=== PATIENT | female | born 1980 | race Caucasian/White ===

== ENCOUNTER 2019-03-25 05:50 | Emergency (ER) | payer OTHER ==
[~2019-03-25] VITALS: Ht 175.3 cm; Wt 63.1 kg
--- NOTE | 2019-03-25 06:08 | NUR ---
PT HAD TEMPERATURE ON TUESDAY AND THEN STARTED FEELING BETTER. STARTED HAVING HEADACHE YESTERDAY AND HAS CONTINUED TO PERSIST. HAVING STIFF NECK AND IS WORRIED SHE MIGHT HABE MENINGITIS.
[2019-03-25] MEDS ORDERED: DIPHENHYDRAMINE 50 MG/ML, 1ML IVPush ONE (06:30)
[2019-03-25] MEDS ORDERED: SODIUM CHLORIDE FLUSH 10ML SYR IVF ONE (06:30)
[2019-03-25] MEDS ORDERED: PROCHLORPERAZINE 5 MG/ML, 2ML IVPush ONE (06:30)
[2019-03-25] MEDS ORDERED: DIPHENHYDRAMINE 50 MG/ML, 1ML ONE (06:51)
[2019-03-25] MEDS ORDERED: PROCHLORPERAZINE 5 MG/ML, 2ML ONE (06:51)
[2019-03-25 07:02] LABS: BASOPHILS # (AUTO) 0.01 x10^3/uL (0-0.1); BASOPHILS % (AUTO) 0 % (0-1); EOSINOPHILS # (AUTO) 0.04 x10^3/uL (0-0.4); EOSINOPHILS % (AUTO) 1 % (1-7); LYMPHOCYTES # (AUTO) 1.65 x10^3/uL (1-3.4); LYMPHOCYTES % (AUTO) 36 % (22-44); MD NO; MEAN CORPUSCULAR HEMOGLOBIN 31.1 pg (27.0-34.8); MEAN CORPUSCULAR VOLUME 97.3 fL (80-100); MEAN PLATELET VOLUME 7.6 fL (7.4-10.4); MONOCYTES # (AUTO) 0.54 x10^3/uL (0.2-0.8); MONOCYTES % (AUTO) 12 % (2-9); NEUTROPHILS # (AUTO) 2.29 x10^3/uL (1.8-6.8); NEUTROPHILS % (AUTO) 51 % (42-75); PLATELET COUNT 254 x10^3/uL (130-400); RED CELL DISTRIBUTION WIDTH 12.9 % (9.6-15.2)
--- NOTE | 2019-03-25 07:08 | NUR ---
PIV STARTED 20G RIGHT FOREARM. PT MEDICATED PER EMAR. UPDATED ON POC.
--- NOTE | 2019-03-25 07:12 | NUR ---
Recieved bedside report from CARLOS Vazquez. PIOTR. No other needs expressed a this time. Pt aware of need of urine sample.
[2019-03-25 07:14] LABS: ALANINE AMINOTRANSFERASE 19 U/L (12-78); ALBUMIN 3.3 g/dL (3.4-5.0); ANION GAP 5 mmol/L (5-15); CALCIUM 8.3 mg/dL (8.5-10.1); CHLORIDE 112 mmol/L (98-107); CREATININE 0.84 mg/dL (0.55-1.02)
[2019-03-25 07:19] LABS: ALKALINE PHOSPHATASE 37 U/L (45-117); BILIRUBIN,TOTAL 0.5 mg/dL (0.2-1.0); TOTAL PROTEIN 6.6 g/dL (6.4-8.2)
[2019-03-25] MEDS ORDERED: LIDOCAINE-MPF 1%, 5ML ONE (08:08)
--- NOTE | 2019-03-25 08:11 | NUR ---
LP supplies brought to room. Provided pt with warm blanket and pillow per request. NADN. Both bedrails up for safety measures. call light within reach. Pt connected to SPO2% monitor. No other needs expressed at this time. ED PA aware that LP supplies are in room.
--- NOTE | 2019-03-25 09:40 | NUR ---
Pt requesting to use restroom. Pt ambulates with steady gait and balance to restroom with EDRN SBA. NADN, no obvious defecits observed. Pt provided urine sample. UA sent to lab. Pt ambulates back to ED room with steady gait and balance EDRN SBA. Pt connected to SPO2% monitor. Bed in supine flat position. Pt resting supine. Bedrail up for safety measure. Call light within reach. Pt has 7/10 headache. Pt requesting water. Water provided by ED PA. Pt apprecaitive. No other needs expressed at this time.
[2019-03-25] MEDS ORDERED: HYDROmorphone 2 MG/ML, 1ML ONE (09:42)
[2019-03-25 09:48] LABS: MICROSCOPIC NOT IND
[2019-03-25 09:48] LABS: GLUCOSE, CSF 53 mg/dL (40-80); TOTAL PROTEIN,CSF 68 mg/dL (15-45)
[2019-03-25 09:53] LABS: CULTURE INDICATED? NO
--- NOTE | 2019-03-25 09:54 | NUR ---
Provided medication per EMAR for pt's 05/16 headache. Pt appreciative. NADN. No other needs expressed at this time. Call light within reach. Pt connected to SPO2% monitor. Bedrail up for safety precautions. Personal belongings within reach. Pt has unlabored respirations with even chest rise and fall.
[2019-03-25] MEDS ORDERED: HYDROmorphone 1 MG/ML, 1ML INJ IVPush PRN (10:00)
--- NOTE | 2019-03-25 11:10 | NUR ---
Patient states, "I am feeling much better now, my headache is about a 1 (11/16) now." Patient given discharge instructions and they have confirmed that they understand the instructions. PIV 20 g in right forearm d/c with tip intact. No signs or symptoms of infection, infiltration, or phelbitis at PIV site observed. Patient ambulatory with steady gait. Pt d/c with personal belongings, prescription, work note, and all personal belongings.
[2019-03-25 11:12] VITALS: BP 89/56
== END 2019-03-25 11:16 | disposition home or self-care (01) ==
LOC: ED 08:50
DX: R51 Headache (principal); B34.9 Viral infection, unspecified; M54.2 Cervicalgia
CPT/HCPCS: 36415; 62270; 70450; 80053; 81003; 82945; 83605; 84157; 84703; 85025; 87040; 87070; 87205; 87252; 89051; 96374; 96375; 99284; J0780; J1170; J1200

== ENCOUNTER 2019-03-26 10:05 | Emergency (ER) | payer OTHER ==
[~2019-03-26] VITALS: Ht 175.3 cm; Wt 62.0 kg
--- NOTE | 2019-03-26 10:30 | NUR ---
ANESTHESIOLOGIST AND HIS STAFF AT BEDSIDE SPEAKING WITH PT ABOUT BLOOD PATCH PROCEDURE AND PREPARING TO DO SAME
--- NOTE | 2019-03-26 10:59 | NUR ---
BLOOD PATCH COMPLETED BY ANESTHESIOLOGIST. ANESTHESIOLOGIST REQUESTED PT RECEIVE A LITER OF IV FLUIDS. ER MADE AWARE.
[2019-03-26] MEDS ORDERED: SODIUM CHLORIDE 0.9%, 500ML IVBOLUS ONE (11:30)
--- NOTE | 2019-03-26 11:48 | NUR ---
RESTING FLAT IN [facility] WHILE AWAITING CT
[2019-03-26] MEDS ORDERED: OMNIPAQUE 350 MG/ML, 100ML BOTTLE ONE (12:33)
--- NOTE | 2019-03-26 12:55 | NUR ---
VISITOR AT BEDSIDE. AWAITING RE-EVAL
[2019-03-26 13:18] VITALS: BP 103/73
--- NOTE | 2019-03-26 13:18 | NUR ---
UOB TO BATHROOM. STATES NO PINA AT THIS TIME
== END 2019-03-26 13:41 | disposition home or self-care (01) ==
LOC: ED 10:42
DX: R51 Headache (principal); M54.9 Dorsalgia, unspecified; R50.9 Fever, unspecified
CPT/HCPCS: 70496; 99284; J7040; Q9967